=== PATIENT | female | born 1990 | race African-American/Black ===

== ENCOUNTER 2016-09-15 11:52 | Emergency (ER) | payer OTHER ==
[~2016-09-15] VITALS: Ht 170.2 cm; Wt 52.2 kg
[2016-09-15] MEDS ORDERED: PRENTAB16 PO (11:59)
[2016-09-15] MEDS ORDERED: NS 1,000 ML IV ONE (12:30)
[2016-09-15 12:47] LABS: BASO % 0.6 % (0.0-1.0); EOS # 0.3 K/mm3 (0.0-0.50); EOS % 4.5 % (0.0-3.0); LARGE UNSTAINED CELL # 0.1 K/mm3 (0.0-0.4); LARGE UNSTAINED CELL % 1.6 % (0.0-4.0); LYMPH # 1.9 K/mm3 (1.5-6.5); LYMPH % 28.9 % (24.0-44.0); MEAN CORPUSCULAR HEMOGLOBIN 31.1 pg (27.0-33.0); MEAN CORPUSCULAR VOLUME 94.3 fl (80.0-96.0); MONO # 0.4 K/mm3 (0.0-0.8); MONO % 6.5 % (0.0-5.0); NEUTROPHILS # 3.9 K/mm3 (1.8-7.7); NEUTROPHILS % 57.9 % (36.0-66.0); PLATELET COUNT, AUTOMATED 258 k/mm3 (150-450); RED CELL DISTRIBUTION WIDTH 11.7 % (11.5-14.5); WHITE BLOOD COUNT 6.7 K/mm3 (4.0-10.0)
[2016-09-15 13:08] LABS: ANION GAP 7 MEQ/L (8-16); BLOOD UREA NITROGEN 10 MG/DL (7-18); CALCIUM LEVEL 8.6 MG/DL (8.5-10.1); CARBON DIOXIDE LEVEL 27 MEQ/L (21-32); CHLORIDE LEVEL 101 MEQ/L (98-107); CREATININE FOR GFR 0.64 MG/DL (0.55-1.02); GLOMERULAR FILTRATION RATE > 60.0 (>60); GLUCOSE, FASTING 81 MG/DL (70-105); POTASSIUM SERUM 3.7 MEQ/L (3.5-5.1); SODIUM LEVEL 135 MEQ/L (136-145)
[2016-09-15 14:01] VITALS: BP 118/72
== END 2016-09-15 14:02 | disposition home or self-care (01) ==
LOC: M ED 12:46
DX: R53.83 Other fatigue (principal); Z3A.01 Less than 8 weeks gestation of pregnancy

== ENCOUNTER → 2016-12-05 | Outpatient (CLI) | payer OTHER ==
[~2016-12-05] MED LIST: PRENTAB16 PO
--- NOTE | 2016-12-05 14:05 | REP ---
Obstetric ultrasound for anatomy: There is a single intrauterine gestation in a vertex presentation. There is movement and cardiac activity, the heart rate is 141 beats per minute. The placenta is anterior without previa or abruptio and grade zero maturity. The amniotic fluid volume subjectively is normal. The cervix is 3.5 cm length. Maternal adnexa and cul-de-sac are unremarkable. By the ultrasound today gestational age is 18 weeks 4 days with an ADWOA of 05/04/2017. The LMP is unknown. weight is 253 grams (0 pounds, 8 ounces). This is the 49 percentile for 18 weeks 4 days. The following anatomic structures are identified and are unremarkable: Intracranial lateral ventricles, cisterna magna, cranium, choroid plexus, cavum septum pellucidum, posterior fossa, facial profile, lungs, four-chamber heart, cardiac right and left ventricular outflow tracts, diaphragm, stomach, cord insertion, three-vessel cord, kidneys, bladder, spine and upper lower extremities. No anomalies are identified. Signed by Aaron Herrera MD 12/05/2016 01:57 P
== END ==
LOC: M SMT 09:58
PROVIDERS: ATTEND Obstetrics & Gynecology
DX: Z36 Encounter for antenatal screening of mother (principal); Z3A.18 18 weeks gestation of pregnancy

== ENCOUNTER 2017-01-12 08:55 | Outpatient (CLI) | payer OTHER ==
[~2017-01-12] VITALS: Ht 170.2 cm; Wt 58.5 kg
[2017-01-12 09:13] VITALS: BP 126/68
== END 2017-01-12 10:45 | disposition home or self-care (01) ==
LOC: M LDO 08:55
PROVIDERS: ATTEND Obstetrics & Gynecology
DX: O26.892 Other specified pregnancy related conditions, second trimester (principal); Z3A.24 24 weeks gestation of pregnancy; M54.5 Low back pain

== ENCOUNTER → 2017-01-21 | Outpatient (CLI) | payer OTHER ==
[2017-01-21 15:08] LABS: MEAN CORPUSCULAR HEMOGLOBIN 31.6 pg (27.0-33.0); MEAN CORPUSCULAR HGB CONC 33.2 g/dl (32.0-36.5); MEAN CORPUSCULAR VOLUME 95.2 fl (80.0-96.0); RED CELL DISTRIBUTION WIDTH 11.7 % (11.5-14.5); WHITE BLOOD COUNT 8.7 10^3/uL (4.0-10.0)
== END ==
LOC: M SMT 09:21
PROVIDERS: ATTEND Obstetrics & Gynecology
DX: Z34.82 Encounter for supervision of other normal pregnancy, second trimester (principal)

== ENCOUNTER → 2017-04-11 | Outpatient (REF) | payer OTHER | LOC: M LAB REF 17:09 | PROVIDERS: ATTEND Obstetrics & Gynecology | DX: Z34.83 Encounter for supervision of other normal pregnancy, third trimester (principal) ==

== ENCOUNTER 2017-05-01 06:54 | Inpatient (IN) | payer OTHER ==
[2017-05-01] MEDS: LACTATED RINGER'S 1000 ML IV (08:12)
[2017-05-01 08:35] LABS: AMPHETAMINES URINE REFLEX NEGATIVE (NEGATIVE); BARBITURATES URINE REFLEX NEGATIVE (NEGATIVE); BENZODIAZEPINES URINE REFLEX NEGATIVE (NEGATIVE); CANNABINOIDS URINE REFLEX NEGATIVE (NEGATIVE); COCAINE METABOLITE URINE REFLE NEGATIVE (NEGATIVE); METHADONE URINE REFLEX NEGATIVE (NEGATIVE); OPIATES URINE REFLEX NEGATIVE (NEGATIVE); PHENCYCLIDINE URINE REFLEX NEGATIVE (NEGATIVE)
[2017-05-01 08:46] LABS: HEMATOCRIT 35.1 % (36.0-47.0); HEMOGLOBIN 11.9 g/dl (12.0-16.0); MEAN CORPUSCULAR HEMOGLOBIN 31.9 pg (27.0-33.0); MEAN CORPUSCULAR HGB CONC 33.9 g/dl (32.0-36.5); MEAN CORPUSCULAR VOLUME 94.1 fl (80.0-96.0); PLATELET COUNT, AUTOMATED 225 10^3/uL (150-450); RED BLOOD COUNT 3.73 10^6/uL (4.00-5.40); RED CELL DISTRIBUTION WIDTH 11.4 % (11.5-14.5); WHITE BLOOD COUNT 9.4 10^3/uL (4.0-10.0)
[2017-05-01 10:13] LABS: HBSAG L&D NEGATIVE (NEGATIVE)
[2017-05-01] MEDS ORDERED: OXYTOCIN 30 UNITS IN 0.9% NaCl 500ML IV BAG (J2590) As Ordered (11:21)
[2017-05-01] MEDS ORDERED: BUTORPHANOL 2 MG/ML INJ (J0595) As Ordered (13:33)
[2017-05-01] MEDS ORDERED: PROMETHAZINE INJ 25 MG/ML VIAL (J2550) As Ordered (13:36)
[2017-05-01] MEDS: BUTORPHANOL 2 MG/ML INJ (J0595) IV (13:45)
[2017-05-01] MEDS: PROMETHAZINE INJ 25 MG/ML VIAL (J2550) IV (13:46)
[2017-05-01] MEDS: LR 1,000 ML IV ×2 (13:50→18:32)
[2017-05-01] MEDS ORDERED: LR 1,000 ML IV (19:24)
[2017-05-01] MEDS ORDERED: PROMETHAZINE 25 MG TAB PO (19:30)
[2017-05-01] MEDS ORDERED: ACETAMINOPHEN 500 MG TAB PO (19:30)
[2017-05-01] MEDS ORDERED: MEASLES,MUMPS,RUBELLA VACCINE INJ (MMR-II) (90707) SC (19:30)
[2017-05-01] MEDS ORDERED: DOCUSATE SODIUM 100 MG CAP PO (19:30)
[2017-05-01] MEDS ORDERED: RHOGAM 300 MCG (1500 IU) INJ (J2790) IM (19:30)
[2017-05-01] MEDS ORDERED: DIBUCAINE 1% OINTMENT 30GM TOP (19:30)
[2017-05-01] MEDS ORDERED: ONDANSETRON 4MG/2ML VIAL (J2405) IV (19:30)
[2017-05-01] MEDS: IBUPROFEN 800 MG TAB PO (20:34)
[2017-05-02] MEDS: OXYTOCIN DRIP 30 UNITS in APPROPRIATE DILUENT 1 EA IV (07:22)
[2017-05-02] MEDS: LIDOCAINE 1% MDV INJ 50 ML VIAL INFIL (07:22)
[2017-05-02] MEDS: PRENATAL VITAMINS CHEWABLE TABLET PO (07:48)
[2017-05-02] MEDS: IBUPROFEN 800 MG TAB PO ×2 (07:49→19:55)
[2017-05-03] MEDS: IBUPROFEN 800 MG TAB PO (06:23)
[2017-05-03] MEDS: PRENATAL VITAMINS CHEWABLE TABLET PO (08:28)
[2017-05-03] MEDS: ADACEL/BOOSTRIX VACCINE (DIPHTH/PERTUSS/ACELL/TETANUS)0.5ML SYR (90715) IM (13:52)
== END 2017-05-03 14:15 | disposition home or self-care (01) | DRG 775 ==
LOC: M LDO 06:54 → M LDI 07:39 → M OBS 21:33
PROC: 10E0XZZ Delivery of Products of Conception, External Approach (ICD-10-PCS; principal; 2017-05-01)
PROC: 10907ZC Drainage of Amniotic Fluid, Therapeutic from Products of Conception, Via Natural or Artificial Opening (ICD-10-PCS; 2017-05-01)
PROC: 0HQ9XZZ Repair Perineum Skin, External Approach (ICD-10-PCS; 2017-05-01)
DX: O70.0 First degree perineal laceration during delivery (principal); Z37.0 Single live birth; Z3A.39 39 weeks gestation of pregnancy

== ENCOUNTER → 2018-03-05 | Outpatient (CLI) | payer OTHER ==
[2018-03-05 13:24] LABS: BASO % 0.9 % (0.0-1.0); EOS # 0.3 10^3/uL (0.0-0.50); EOS % 7.2 % (0.0-3.0); HEMATOCRIT 37.4 % (36.0-47.0); HEMOGLOBIN 12.4 g/dl (12.0-15.5); LYMPH # 1.8 10^3/uL (1.5-6.5); LYMPH % 38.1 % (24.0-44.0); MEAN CORPUSCULAR HEMOGLOBIN 29.6 pg (27.0-33.0); MEAN CORPUSCULAR HGB CONC 33.2 g/dl (32.0-36.5); MEAN CORPUSCULAR VOLUME 89.3 fl (80.0-96.0); MONO # 0.3 10^3/uL (0.0-0.8); MONO % 6.1 % (0.0-5.0); NEUTROPHILS # 2.2 10^3/uL (1.8-7.7); NEUTROPHILS % 47.7 % (36.0-66.0); PLATELET COUNT, AUTOMATED 193 10^3/uL (150-450); RED BLOOD COUNT 4.19 10^6/uL (4.00-5.40); RED CELL DISTRIBUTION WIDTH 11.4 % (11.5-14.5); WHITE BLOOD COUNT 4.6 10^3/uL (4.0-10.0)
[2018-03-05 13:50] LABS: ALBUMIN 4.5 GM/DL (3.2-5.2); ALBUMIN/GLOBULIN RATIO 1.45 (1.00-1.93); ALKALINE PHOSPHATASE 148 U/L (45-117); ALT/SGPT 24 U/L (12-78); ANION GAP 7 MEQ/L (8-16); AST/SGOT 14 U/L (7-37); BILIRUBIN,TOTAL 0.5 MG/DL (0.2-1.0); BLOOD UREA NITROGEN 14 MG/DL (7-18); CALCIUM LEVEL 9.4 MG/DL (8.5-10.1); CARBON DIOXIDE LEVEL 27 MEQ/L (21-32); CHLORIDE LEVEL 107 MEQ/L (98-107); CREATININE FOR GFR 0.63 MG/DL (0.55-1.30); FREE T4 1.12 NG/DL (0.76-1.46); GLOMERULAR FILTRATION RATE > 60.0 (>60); GLUCOSE, FASTING 88 MG/DL (70-100); POTASSIUM SERUM 4.1 MEQ/L (3.5-5.1); SODIUM LEVEL 141 MEQ/L (136-145); TOTAL PROTEIN 7.6 GM/DL (6.4-8.2)
[2018-03-05 13:51] LABS: TOTAL 25(OH) VITAMIN D 23.4 NG/ML (30.0-100.0)
== END ==
LOC: M SMT 09:03
DX: M41.34 Thoracogenic scoliosis, thoracic region (principal); R53.83 Other fatigue
CPT/HCPCS: 84443

== ENCOUNTER → 2018-03-18 | Outpatient (REF) | payer OTHER | LOC: M LAB REF 18:33 | DX: Z12.4 Encounter for screening for malignant neoplasm of cervix (principal) | CPT/HCPCS: G0123 ==

== ENCOUNTER → 2018-06-04 | Outpatient (CLI) | payer OTHER ==
[~2018-06-04] MED LIST changes: +IBUP-1114 PO; +MAPA500T2 PO
[2018-06-04 09:46] LABS: BASO # 0.1 10^3/uL (0.0-0.2); BASO % 1.2 % (0.0-1.0); EOS # 0.4 10^3/uL (0.0-0.50); EOS % 6.1 % (0.0-3.0); HEMATOCRIT 35.4 % (36.0-47.0); HEMOGLOBIN 11.9 g/dl (12.0-15.5); LYMPH # 1.8 10^3/uL (1.5-6.5); LYMPH % 31.4 % (24.0-44.0); MEAN CORPUSCULAR HEMOGLOBIN 29.5 pg (27.0-33.0); MEAN CORPUSCULAR HGB CONC 33.6 g/dl (32.0-36.5); MEAN CORPUSCULAR VOLUME 87.8 fl (80.0-96.0); MONO # 0.3 10^3/uL (0.0-0.8); MONO % 5.8 % (0.0-5.0); NEUTROPHILS # 3.2 10^3/uL (1.8-7.7); NEUTROPHILS % 55.3 % (36.0-66.0); PLATELET COUNT, AUTOMATED 278 10^3/uL (150-450); RED BLOOD COUNT 4.03 10^6/uL (4.00-5.40); WHITE BLOOD COUNT 5.7 10^3/uL (4.0-10.0)
[2018-06-04 10:15] LABS: ALBUMIN 4.3 GM/DL (3.2-5.2); BILIRUBIN,DIRECT 0.1 MG/DL (0.0-0.2); BILIRUBIN,TOTAL 0.4 MG/DL (0.2-1.0); TOTAL PROTEIN 7.4 GM/DL (6.4-8.2)
== END ==
LOC: M SMT 08:04
PROVIDERS: ATTEND Physician Assistant
DX: L60.2 Onychogryphosis (principal)

== ENCOUNTER → 2018-12-31 | Outpatient (REF) | payer OTHER | LOC: M LAB REF 17:15 | PROVIDERS: ATTEND Physician Assistant | DX: N39.0 Urinary tract infection, site not specified (principal) ==

== ENCOUNTER → 2019-01-23 | Outpatient (REF) | payer OTHER | LOC: M LAB REF 15:30 | PROVIDERS: ATTEND Physician Assistant | DX: N39.0 Urinary tract infection, site not specified (principal) ==

== ENCOUNTER → 2019-06-03 | Outpatient (CLI) | payer OTHER ==
[2019-06-03 10:43] LABS: BASO # 0.1 10^3/uL (0.0-0.2); BASO % 0.8 % (0.0-1.0); EOS # 0.2 10^3/uL (0.0-0.5); EOS % 2.5 % (0.0-3.0); HEMATOCRIT 36.8 % (36.0-47.0); HEMOGLOBIN 11.9 g/dl (12.0-15.5); LYMPH # 1.8 10^3/uL (1.5-5.0); LYMPH % 19.5 % (24.0-44.0); MEAN CORPUSCULAR HEMOGLOBIN 29.2 pg (27.0-33.0); MEAN CORPUSCULAR HGB CONC 32.3 g/dl (32.0-36.5); MEAN CORPUSCULAR VOLUME 90.2 fl (80.0-96.0); MONO # 0.5 10^3/uL (0.0-0.8); MONO % 5.6 % (0.0-5.0); NEUTROPHILS # 6.6 10^3/uL (1.5-8.5); NEUTROPHILS % 71.5 % (36.0-66.0); PLATELET COUNT, AUTOMATED 360 10^3/uL (150-450); RED BLOOD COUNT 4.08 10^6/uL (4.00-5.40); WHITE BLOOD COUNT 9.3 10^3/uL (4.0-10.0)
[2019-06-03 11:25] LABS: ALT/SGPT 21 U/L (12-78); BLOOD UREA NITROGEN 13 MG/DL (7-18); CALCIUM LEVEL 9.6 MG/DL (8.5-10.1); CARBON DIOXIDE LEVEL 29 MEQ/L (21-32); CHLORIDE LEVEL 104 MEQ/L (98-107); CREATININE FOR GFR 0.72 MG/DL (0.55-1.30); GLOMERULAR FILTRATION RATE > 60.0 (>60); GLUCOSE, FASTING 81 MG/DL (70-100); POTASSIUM SERUM 4.2 MEQ/L (3.5-5.1); SODIUM LEVEL 140 MEQ/L (136-145)
[2019-06-03 11:26] LABS: ALBUMIN 4.3 GM/DL (3.2-5.2); BILIRUBIN,TOTAL 0.5 MG/DL (0.2-1.0); CHOLESTEROL LEVEL 197 MG/DL (<200); CHOLESTEROL RISK RATIO 3.338 (<5); FREE T4 1.13 NG/DL (0.76-1.46); HDL CHOLESTEROL 59 MG/DL (>40); LDL CHOLESTEROL 125 MG/DL (<100); NON-HDL-C 138 MG/DL; SICKLE CELL SCREEN POSITIVE (NEGATIVE); THYROID STIMULATING HORMONE 0.815 uIU/ML (0.358-3.740); TRIGLYCERIDES LEVEL 67 MG/DL (<150)
[2019-06-03 12:20] LABS: TOTAL 25(OH) VITAMIN D 15.5 NG/ML (30.0-100.0)
== END ==
LOC: M LAB 09:04
PROVIDERS: ATTEND Physician Assistant
DX: Z00.00 Encounter for general adult medical examination without abnormal findings (principal); Z13.1 Encounter for screening for diabetes mellitus; R53.83 Other fatigue; Z13.220 Encounter for screening for lipoid disorders

== ENCOUNTER → 2019-08-21 | Outpatient (REF) | payer OTHER ==
[2019-08-21 13:19] LABS: HEMATOCRIT 34.1 % (36.0-47.0); HEMOGLOBIN 11.5 g/dl (12.0-15.5); MEAN CORPUSCULAR HEMOGLOBIN 29.9 pg (27.0-33.0); MEAN CORPUSCULAR HGB CONC 33.7 g/dl (32.0-36.5); MEAN CORPUSCULAR VOLUME 88.6 fl (80.0-96.0); PLATELET COUNT, AUTOMATED 236 10^3/uL (150-450); RED BLOOD COUNT 3.85 10^6/uL (4.00-5.40); WHITE BLOOD COUNT 9.2 10^3/uL (4.0-10.0)
[2019-08-21 14:11] LABS: FREE T4 1.13 NG/DL (0.76-1.46); HEPATITIS B SURFACE ANTIGEN NEGATIVE (NEGATIVE); RUBELLA IgG QUALITATIVE IMMUNE (IMMUNE); THYROID STIMULATING HORMONE 0.729 uIU/ML (0.358-3.740)
[2019-08-21 14:35] LABS: HEPATITIS C VIRUS ABY INDEX 0.3 INDEX (<0.8); HIV 1&2 SCREEN CENTAUR NEGATIVE (NEGATIVE)
[2019-08-21 14:42] LABS: CHLAMYDIA DNA AMPLIFICATION NEGATIVE (NEGATIVE); GC DNA AMPLIFICATION NEGATIVE (NEGATIVE)
== END ==
LOC: M PLALAB 11:52
PROVIDERS: ATTEND Advanced Practice Midwife
DX: Z34.91 Encounter for supervision of normal pregnancy, unspecified, first trimester (principal)

== ENCOUNTER → 2019-09-17 | Outpatient (CLI) | payer OTHER | LOC: M PLALAB 15:51 | PROVIDERS: ATTEND Advanced Practice Midwife | DX: Z36.89 Encounter for other specified antenatal screening (principal) | CPT/HCPCS: 36415; G0463 ==

== ENCOUNTER → 2019-11-02 | Outpatient (CLI) | payer OTHER ==
--- NOTE | 2019-11-02 16:27 | REP ---
REASON: anatomy. Multiple ultrasonographic images of the gravid uterus show a single living intrauterine gestation in the cephalic presentation. Doppler interrogation of the heart shows a heart rate of 146 beats per minute. The placenta is posterior and not low lying. The subjective amniotic fluid volume is within normal limits. The cervix measures 3.5 cm in length and is closed. Evaluation of the maternal adnexal spaces showed abnormalities. BPD 4.8 cm = 20 weeks 2 days HC 17.4 cm = 19 weeks 6 days AC 15.9 cm = 21 weeks 0 days FL 3.4 cm = 20 weeks 6 days Estimated weight is 378 grams which is at the 64th percentile for a 40-wacf-0-day gestational age. Structures visualized as unremarkable are as follows: Thalami, cavum septum pellucidum, cerebellum, cisterna magna, cerebral ventricles, spine, kidneys, four-chamber heart, right and left ventricular outflow tracts, cord insertion, stomach, urinary bladder, and upper and lower extremities. Three-vessel cord was not optimally visualized. IMPRESSION: Single living intrauterine gestation as described above with an estimated gestational age of 20 weeks 2 days via composite criteria and estimated date of delivery of 03/19/2020 by today's exam. No anomalies were detected, however, I recommend a followup examination to confirm a three-vessel umbilical cord.
== END ==
LOC: M WHC 12:40
PROVIDERS: ATTEND Advanced Practice Midwife
DX: Z36.3 Encounter for antenatal screening for malformations (principal); Z3A.20 20 weeks gestation of pregnancy

== ENCOUNTER → 2019-12-08 | Outpatient (CLI) | payer OTHER ==
--- NOTE | 2020-01-22 11:36 | REP ---
OBSTETRIC ULTRASOUND FOR FOLLOW-UP OF ANATOMY Delay in reporting results from hospital computer system malfunction from malware/ ransomware. On the prior study dated 04/03/2020, a three-vessel cord could not be adequately demonstrated. The study today is for follow-up of this structure. There is a single intrauterine gestation in a transverse lie with the head in the maternal left. The placenta is posterior, grade 0, without previa or abruptio. The inferior margin of the placenta is 3.7 cm away from the internal cervical os on transvaginal imaging. On the study today, the umbilical cord is adequately demonstrated and a three- vessel cord is documented. The remainder of the anatomy was previously unremarkable and is not repeated. heart rate 150 beats per minute. Amniotic fluid volume subjectively is normal. Cervix measures 3.1 cm in length. The composite gestational age by [facility] [place] ultrasound is 26 weeks 0 days. Estimated weight 843 grams. This is the 59th percentile. Gestational age based on last menstrual period (LMP) is 25 weeks 2 days. Estimated date of delivery (ADWOA) based on gestational age 25 weeks 2 days is 03/20/2020. MTDD
== END ==
LOC: M WHC 08:38
PROVIDERS: ATTEND Advanced Practice Midwife
DX: O00-O9A Pregnancy, childbirth and the puerperium (principal)

== ENCOUNTER → 2019-12-23 | Outpatient (CLI) | payer OTHER ==
[2019-12-23 15:24] LABS: HEMOGLOBIN 11.6 g/dl (12.0-15.5); MEAN CORPUSCULAR HEMOGLOBIN 31.7 pg (27.0-33.0); MEAN CORPUSCULAR HGB CONC 33.1 g/dl (32.0-36.5); MEAN CORPUSCULAR VOLUME 95.6 fl (80.0-96.0); PLATELET COUNT, AUTOMATED 252 10^3/uL (150-450); RED BLOOD COUNT 3.66 10^6/uL (4.00-5.40)
== END ==
LOC: M PLALAB 11:49
PROVIDERS: ATTEND Advanced Practice Midwife
DX: Z36.89 Encounter for other specified antenatal screening (principal)

== ENCOUNTER → 2020-02-24 | Outpatient (REF) | payer OTHER ==
[~2020-02-24] MED LIST changes: +DOCU100C16 PO; +IBUP80TA PO
== END ==
LOC: M SFHCWAGY 10:00
PROVIDERS: ATTEND Advanced Practice Midwife
DX: Z3A.36 36 weeks gestation of pregnancy (principal)
CPT/HCPCS: 87081; G0463

== ENCOUNTER 2020-03-16 19:04 | Inpatient (IN) | payer OTHER ==
[~2020-03-16] VITALS: Ht 170.2 cm; Wt 74.0 kg
[~2020-03-16 19:04] MED LIST changes: -DOCU100C16 PO; -IBUP80TA PO
[2020-03-16] MEDS ORDERED: BUTORPHANOL 2 MG/ML INJ (J0595) IV ONE (19:30)
[2020-03-16] MEDS ORDERED: PROMETHAZINE INJ 25 MG/ML VIAL (J2550) IV ONE (19:30)
[2020-03-16] MEDS ORDERED: LR 1,000 ML IV SCH (19:30)
[2020-03-16 19:34] VITALS: BP 108/63
[2020-03-16 19:48] LABS: HEMATOCRIT 35.7 % (36.0-47.0); HEMOGLOBIN 11.6 g/dl (12.0-15.5); MEAN CORPUSCULAR HEMOGLOBIN 30.4 pg (27.0-33.0); MEAN CORPUSCULAR HGB CONC 32.5 g/dl (32.0-36.5); MEAN CORPUSCULAR VOLUME 93.7 fl (80.0-96.0); PLATELET COUNT, AUTOMATED 264 10^3/uL (150-450); RED BLOOD COUNT 3.81 10^6/uL (4.00-5.40)
[2020-03-16 21:55] VITALS: BP 112/58
[2020-03-16] MEDS ORDERED: OXYTOCIN 30 UNITS IN 0.9% NaCl 500ML IV BAG (J2590) As Ordered ONE (22:10)
[2020-03-16 23:44] VITALS: BP 121/73
[2020-03-16 23:59] VITALS: BP 124/59
[2020-03-17 00:14] VITALS: BP 117/57
[2020-03-17 00:30] VITALS: BP 125/60
[2020-03-17 00:44] VITALS: BP 124/59
[2020-03-17] MEDS ORDERED: OXYTOCIN DRIP 30 UNITS in IV 1 EA IV SCH (01:33)
[2020-03-17] MEDS ORDERED: RHOGAM 300 MCG (1500 IU) INJ (J2790) IM SCH (01:45)
[2020-03-17] MEDS ORDERED: DOCUSATE SODIUM 100 MG CAP PO PRN (01:45)
[2020-03-17] MEDS ORDERED: DIBUCAINE 1% OINTMENT 30GM TOP PRN (01:45)
[2020-03-17] MEDS ORDERED: MEASLES,MUMPS,RUBELLA VACCINE INJ (MMR-II) (90707) SC SCH (01:45)
[2020-03-17] MEDS ORDERED: METHYLERGONOVINE MALEATE 0.2 MG TAB PO PRN (01:45)
[2020-03-17] MEDS ORDERED: ACETAMINOPHEN 500 MG TAB PO PRN (01:45)
[2020-03-17] MEDS ORDERED: IBUPROFEN 600MG TAB PO PRN (01:45)
[2020-03-17 02:50] VITALS: BP 127/65
[2020-03-17] MEDS: IBUPROFEN 800 MG TAB PO PRN ×2 (02:57→19:49)
[2020-03-17] MEDS: PRENATAL VITAMINS CHEWABLE TABLET PO SCH (08:11)
[2020-03-17 18:00] VITALS: BP 103/61
[2020-03-17] MEDS: ACETAMINOPHEN TAB 650MG DOSE (2X325MG) PO PRN (22:07)
[2020-03-18] MEDS: ACETAMINOPHEN TAB 650MG DOSE (2X325MG) PO PRN (03:20)
[2020-03-18] MEDS: IBUPROFEN 800 MG TAB PO PRN (05:35)
[2020-03-18 06:00] VITALS: BP 107/56
--- NOTE | 2020-03-18 07:39 | DS.PDOC ---
Discharge Summary General Date of Admission Mar 16, 2020 at 19:26 Date of Discharge Mar 18, 2020 Discharge Summary PROCEDURES PERFORMED DURING STAY: spontaneous vaginal delivery ADMITTING DIAGNOSES: 1. active labor at term DISCHARGE DIAGNOSES: 1. active labor at term, delivered COMPLICATIONS/CHIEF COMPLAINT: LABOR. HISTORY OF PRESENT ILLNESS/HOSPITAL COURSE: Heydi is a 30yo [id number] s/p uncomplicated at term, delivering at 2338 on 03/16, after presenting in active labor. She has had a benign course. At time of discharge, vitals are wnl, she is afebrile. There is no evidence of infection and she is hemodynamically stable. DISCHARGE MEDICATIONS: Please see below. ALLERGIES: Please see below. PHYSICAL EXAMINATION ON DISCHARGE: VITAL SIGNS: Please see below. GENERAL: patient resting comfortably Abdomen: soft, NTTP, fundus firm at u-2cm Extremities: no pain with palpation of calves LABORATORY DATA: Please see below. ACTIVITY: As tolerated, vaginal rest 6 weeks, no heavy lifting DIET: regular DISPOSITION: home DISCHARGE PLAN/INSTRUCTIONS: 1. Discharge home today 2. Routine visit in 6 weeks 3. Regular diet 4. Undecided on contraception, will readdress at 6wk PP visit 5. Discussed return precautions at length DISCHARGE CONDITION: Stable TIME SPENT ON DISCHARGE: Greater than 20 minutes. Regi Beltre MD Vital Signs/I&Os Vital Signs Date Time Temp Pulse Resp B/P (MAP) Pulse Ox O2 Delivery O2 Flow Rate FiO2 03/17/20 18:00 98.0 99 20 103/61 (75) 03/17/20 02:50 100 Room Air I&O- Last 24 Hours up to 6 AM 03/17/20 06:00 Output Total 1200 ml Balance -1200 ml Allergies Coded Allergies: No Known Allergies (Unverified , 09/15/16) Regi Beltre MD Mar 17, 2020 19:44
--- NOTE | 2020-03-18 07:41 | IPNPDOC ---
Progress Note Date of Service: Mar 18, 2020 Day#: 2 Progress Note PPD 2 SUBJECT: Heydi is a 30yo [id number] s/p uncomplicated at term, delivering at 2338 on 03/16, after presenting in active labor, doing well day # 2. She has been ambulating, voiding spontaneously without issue and tolerating regular diet. Breast feeding without issue. Reports lochia is like a normal period. No f/c/n/v/CP/SOB. OBJECTIVE: VITAL SIGNS: Within normal limits, afebrile. Alert and oriented times three. Abdomen: Fundus firm at U-2. Soft, NTTP. Extremities: no pain with palpation of calves ASSESSMENT: Heydi is a 30yo [id number] s/p uncomplicated at term, delivering at 2338 on 03/16, after presenting in active labor, doing well day # 2. Vitals within normal limits, afebrile, hemodynamically stable with no evidence of infection. PLAN: 1. Discharge to home today. 2. Tylenol and Motrin for pain. 3. Encourage breast feeding and ambulation. 4. Mirena IUD for contraception 5. Routine PP visit in 6 weeks in clinic. 6. Discussed return precautions at length. Regi Beltre MD VS, I&O, 24H, Fishbone Vital Signs/I&O Vital Signs Date Time Temp Pulse Resp B/P (MAP) Pulse Ox O2 Delivery O2 Flow Rate FiO2 03/18/20 06:00 98.1 78 18 107/56 (73) 03/17/20 02:50 100 Room Air Regi Beltre MD Mar 18, 2020 07:40
[2020-03-18] MEDS ORDERED: DOCU100C16 PO (07:43)
[2020-03-18] MEDS ORDERED: IBUP80TA PO (07:43)
[2020-03-18] MEDS: PRENATAL VITAMINS CHEWABLE TABLET PO SCH (07:47)
== END 2020-03-18 12:05 | disposition home or self-care (01) | DRG 807 ==
LOC: M LDO 19:04 → M LDI 19:26 → M OBS 03-17 02:25
PROVIDERS: ADMIT Advanced Practice Midwife; ATTEND Advanced Practice Midwife
PROC: 10E0XZZ Delivery of Products of Conception, External Approach (ICD-10-PCS; principal; 2020-03-17)
PROC: 10907ZC Drainage of Amniotic Fluid, Therapeutic from Products of Conception, Via Natural or Artificial Opening (ICD-10-PCS; 2020-03-17)
DX: O80 Encounter for full-term uncomplicated delivery (principal); Z37.0 Single live birth; Z3A.39 39 weeks gestation of pregnancy